=== PATIENT | female | born 1945 | race Caucasian/White ===

== ENCOUNTER → 2016-10-18 | Outpatient (CLI) | payer OTHER | LOC: BRMIMAGING 11:49 | DX: Z12.31 Encounter for screening mammogram for malignant neoplasm of breast (principal); Z13.820 Encounter for screening for osteoporosis; E11.9 Type 2 diabetes mellitus without complications; R29.890 Loss of height | CPT/HCPCS: G0202 ==

== ENCOUNTER → 2016-10-22 | Outpatient (CLI) | payer OTHER | LOC: BRMIMAGING 10:55 | PROVIDERS: ATTEND Physician Assistant Medical | DX: M89.9 Disorder of bone, unspecified (principal) | CPT/HCPCS: 72170-PO ==

== ENCOUNTER → 2016-11-05 | Outpatient (CLI) | payer OTHER | LOC: BRMIMAGING 08:49 | DX: R92.8 Other abnormal and inconclusive findings on diagnostic imaging of breast (principal) | CPT/HCPCS: 76641; G0206 ==

== ENCOUNTER → 2016-11-12 | Outpatient (CLI) | payer OTHER ==
[~2016-11-12] MED LIST: THROMBIN (BOVINE) 5,000 UNIT VIAL TP ONE
== END ==
LOC: FIMAGING 08:43
PROVIDERS: ATTEND Physician Assistant Medical
PROC: 0HBU3ZX Excision of Left Breast, Percutaneous Approach, Diagnostic (ICD-10-PCS; principal; 2016-11-12)
DX: D24.2 Benign neoplasm of left breast (principal)

== ENCOUNTER → 2017-11-22 | Outpatient (CLI) | payer OTHER | LOC: BRMIMAGING 10:46 | PROVIDERS: ATTEND Family Medicine | DX: Z12.31 Encounter for screening mammogram for malignant neoplasm of breast (principal); Z13.820 Encounter for screening for osteoporosis; Z78.0 Asymptomatic menopausal state ==